=== PATIENT | female | born 1940 | race Caucasian/White ===

== ENCOUNTER 2017-07-18 03:26 | Inpatient (IN) | payer MEDICARE, MEDICAID ==
[2017-07-18 04:01] LABS: Hematocrit 38.3 % (37.0-47.0); Hemoglobin 12.8 gm/dL (12.5-16.0); Mean Corpuscular Hemoglobin 32.4 pg (27-31); Mean Corpuscular Hgb Conc 33.4 g/dl (32-36); Mean Platelet Volume 10.1 fl (6.0-9.5); Neutrophil % 59.5 % (42-75.0); Platelet Count 169 K/mm3 (150-450); Red Blood Count 3.95 M/mm3 (4.2-5.4); Red Cell Distribution Width 12.9 % (11.5-14.0); White Blood Count 6.7 K/mm3 (4.0-10.5)
[2017-07-18] MEDS ORDERED: DILTIAZEM HCL 5 MG/ML VIAL IV ONE ×3 (04:08→04:40)
--- NOTE | 2017-07-18 04:11 | ERNOTE ---
Medical Problem HPI - Narrative Date of Service: 07/18/17 - General Chief Complaint: Nausea/Vomiting Time Seen by Provider: 07/18/17 03:34 Source: patient Exam Limitations: no limitations - Immun/Allergies/Home Medications Immunizations: IMMUNIZATION HX Immunizations Up to Date Yes History of Influenza Vaccine Yes Hx Pneumococcal Vaccination No Allergies/Adverse Reactions: Allergies No Known Allergies Allergy (Verified 06/21/16 20:49) Home Medications: HOME MEDICATIONS Aspirin [Aspirin EC] 81 mg PO DAILY 08/09/15 [Last Taken Unknown] Atenolol [Tenormin] 50 mg PO BID 08/09/15 [Last Taken Unknown] Atorvastatin Calcium 40 mg PO HS 08/09/15 [Last Taken Unknown] Benazepril HCl 20 mg PO DAILY 08/09/15 [Last Taken Unknown] Calcium Carbonate [Tums] 1,500 mg PO HS 08/09/15 [Last Taken Unknown] HYDROcodone/ACETAMINOPHEN [Lortab 5-325 mg Tablet] 1 each PO Q6H PRN 08/09/15 [ Last Taken Unknown] Naproxen [Naprosyn] 500 mg PO DAILY 08/09/15 [Last Taken Unknown] glipiZIDE [Glipizide] 10 mg PO BID 08/09/15 [Last Taken Unknown] metFORMIN HCL [Glucophage] 500 mg PO BID 08/09/15 [Last Taken Unknown] Furosemide [Lasix] 40 mg PO DAILY #5 tablet 06/21/16 [Last Taken Unknown] Potassium Chloride [Klor-Con M20] 20 meq PO DAILY #5 tab.er.prt 06/21/16 [Last Taken Unknown] Cholecalciferol [Vitamin D] 2,000 unit PO TID 07/18/17 [Last Taken Unknown] Cyanocobalamin (Vitamin B-12) [Vitamin B12] 2,500 mcg PO HS 07/18/17 [Last Taken Unknown] Omeprazole 20 mg PO DAILY 07/18/17 [Last Taken Unknown] - History of Present History Narrative: 77 year old that came to the ED due to not feeling well and diarrhea. By the time she got to the ED the diarrhea had resolved. Denies any chest pain, shortness of breath, fevers, chills, N/V. Over the weekend she took additional diuretics as per the recommendation of her physician due to lower extremity edema. Date (Duration): 07/18/17 Time (Timing): 05:00 Timing: constant Severity: mild Modifying Factors - (Improves): Present: other - nothing Modifying Factors - (Worsens): Present: other - nothing Review of Systems - Review of Systems Constitutional: Present: no symptoms reported EYE: Present: no symptoms reported ENT: Present: no symptoms reported Respiratory: Present: no symptoms reported Cardiology: Present: no symptoms reported Gastrointestinal/Abdominal: Present: no symptoms reported Genitourinary: Present: no symptoms reported Musculoskeletal: Present: no symptoms reported Skin: Present: no symptoms reported Neurological: Present: no symptoms reported Endocrine: Present: no symptoms reported Hematologic/Lymphatic: Present: no symptoms reported Psych: Present: no symptoms reported - Patient's Past Medical History Patient History - Medical: Diabetes Type 2, Obesity Patient History - Cardiac/Respiratory: Hypertension Patient History - Cancer: Colon, Lung Patient History - Surgical Procedures: Appendectomy, Cataracts, Cholecystectomy , Hysterectomy, Total Knee Replacement - Social History Abuse History: No History of abuse Psych History: No pertinent hx Smoking Status: Former smoker - Immunizations Immunizations Up to Date: Yes Hx Pneumococcal Vaccination: No History of Influenza Vaccine: Yes Physical Exam - Physical Exam Narrative: Pleasant and cooperative. General Appearance: Present: no apparent distress Head Exam: Present: normal inspection Eye Exam: Normal inspection: bilateral Ears, Nose, Throat: Present: normal ENT inspection Neck: Present: normal inspection Respiratory: Present: no respiratory distress Cardiovascular/Chest: Present: tachycardia Gastrointestinal/Abdominal: Present: nondistended Back Exam: Present: normal inspection Extremity Exam: Present: pedal edema, extremity edema Neurological Exam: Present: alert, oriented, normal mood/affect Skin Exam: Present: normal color, warm/dry ED Progress - Results and Orders Patient's Lab Results:: I have reviewed the patient's lab results. - Vital Signs Patient's Vital Signs:: I have reviewed the patient's vital signs. Vital Signs: Vital Signs 07/18/17 03:42 Temperature 36.7 C Pulse Rate 158 H Respiratory 20 Rate Blood Pressure 148/78 - EKG EKG: atrial fibrillation EKG read: Interp. by me EKG Comments: with RVR, rate 152 - X-Ray X-Ray #1 X-Ray: chest Interpretation: Interp. by me X-ray Comments: mild CHF - Progress/Reassessment Chief Complaint: Nausea/Vomiting Progress:: Improved Progress Note-Subjective: 07/18/17 05:07 The heart rate was decreasing with the use of Cardiazem. A drip was started in the ED. The case was discussed with Clayton who will admit the patient. 07/18/17 05:17 hemodynamically stable. Departure Clinical Impression: New onset atrial fibrillation, Congestive heart failure - Departure Disposition: [facility] Condition: Critical Referrals: Jamie Nielson MD [Primary Care Provider] -
[2017-07-18 04:20] LABS: ALT 30 U/L (19-67); AST 18 U/L (0-48); Albumin * 3.6 gm/dl (3.4-5.0); Alkaline Phosphatase * 84 U/L (50-170); Anion Gap 10.5 mmol/L (6.8-13.8); BUN/Creatinine Ratio 11.9 (9.0-21.6); Bilirubin, Total 1.1 mg/dL (0.0-1.1); Blood Urea Nitrogen 15 mg/dL (3-23); Ca. Corrected For Albumin 8.7 mg/dL (8.4-10.2); Calcium * 8.7 mg/dL (7.9-10.9); Carbon Dioxide 31.8 mmol/L (24-32.6); Chloride 105 mmol/L (97-106); Glucose * 190 mg/dL (70-110); Potassium 3.3 mmol/L (3.4-4.6); Sodium 144 mmol/L (132-142); Total Protein 7.1 gm/dL (6.2-8.2); Troponin I Less than 0.017 ng/ml (0.00-0.10)
[2017-07-18 04:47] LABS: BNP * 2513 pg/mL (5-550)
[2017-07-18] MEDS ORDERED: POTASSIUM CHLORIDE 20 MEQ TABLET.SA PO ONE (04:54)
[2017-07-18] MEDS ORDERED: ENOXAPARIN SODIUM 100 MG/ML SYRG SC ONE ×2 (04:59→05:13)
[2017-07-18] MEDS ORDERED: FUROSEMIDE 10 MG/ML VIAL ONE (05:13)
[2017-07-18] MEDS ORDERED: POTASSIUM CHLORIDE 20 MEQ TABLET.SA ONE (05:13)
[2017-07-18] MEDS: FUROSEMIDE 10 MG/ML VIAL IV SCH ×5 (05:16→20:40)
[2017-07-18] MEDS: DILTIAZEM HCL 125 MG in DEXTROSE 5 % IN WATER 100 ML IV PRN ×4 (05:36→14:02)
[2017-07-18] MEDS ORDERED: HYDROcodone/ACETAMINOPHEN 1 EACH TABLET PO PRN (09:37)
--- NOTE | 2017-07-18 10:33 | HP ---
Chief Complaint - Chief Complaint Date of Service: 07/18/17 Time of Service: 10:33 Chief Complaint: Diarrhea History of Present Illness: This is a 77 year old woman who came to our ER early this morning because she hadn't felt well over the weekend. She had diarrhea, which had resolved by the time she reached our ER. She also had an irregular pulse and more fluid in her feet, for which her regular doctor instructed her to take extra fluid medicine. Over the last month she may also have had an irregular pulse, but she is not sure. In the ER she was found to have atrial fibrillation with RVR. She has never had this diagnosis before. She is comfortable, but still has a fib with RVR. She has been started on diltiazem IV and has been given one dose of Lovenox. - Patient's Past Medical History Patient History - Medical: Diabetes Type 2, Obesity Patient History - Cardiac/Respiratory: Hypertension Patient History - Cancer: Colon, Lung Patient History - Surgical Procedures: Appendectomy, Cataracts, Cholecystectomy , Hysterectomy, Total Knee Replacement Patient History - Other: None - Family History Mother Family History - Medical: Diabetes Type 2 Insulin Dependent Family History - Cancer: History Unknown Father Family History - Medical: Family History - Cardiac/Respiratory: History Unknown Family History - Cancer: No pertinent family hx Brother Family History - Cardiac/Respiratory: History Unknown Family History - Cancer: No pertinent family hx Sister Family History - Medical: Other - Social History Living Situations: home Abuse History: No History of abuse Psych History: No pertinent hx Smoking Status: Never smoker Have you smoked in the past 12 months: No Do you dip or chew tobacco: No Patient requests Smoking Cessation Consult: No Initiate information on Smoking Cessation: No Alcohol Use: none Drug Use: none - Immunizations Immunizations Up to Date: Yes Hx Pneumococcal Vaccination: No History of Influenza Vaccine: Yes Review Of Systems (GEN) - Review of Systems Generalized/Overall Review: Present: No Symptoms Reported EENTM: Present: No Symptoms Reported Respiratory: Present: No Symptoms Reported Cardiac: Present: Palpitations Abdominal: Present: Diarrhea Genitourinary: Present: No Symptoms Reported Musculoskeletal: Present: No Symptoms Reported Neurological: Present: No Symptoms Reported Skin: Present: No Symptoms Reported Endocrine: Present: No Symptoms Reported Misc: All systems neg except as marked Allergies/Adverse Reactions: Allergies Allergy/AdvReac Type Severity Reaction Status Date / Time No Known Allergies Allergy Verified 07/18/17 07:27 Home Medications: HOME MEDICATIONS Aspirin [Aspirin EC] 81 mg PO DAILY 08/09/15 [Last Taken Unknown] Atenolol [Tenormin] 50 mg PO BID 08/09/15 [Last Taken Unknown] Atorvastatin Calcium 40 mg PO HS 08/09/15 [Last Taken Unknown] Benazepril HCl 20 mg PO DAILY 08/09/15 [Last Taken Unknown] Calcium Carbonate [Tums] 1,500 mg PO HS 08/09/15 [Last Taken Unknown] HYDROcodone/ACETAMINOPHEN [Lortab 5-325 mg Tablet] 1 each PO Q6H PRN 08/09/15 [ Last Taken Unknown] Naproxen [Naprosyn] 500 mg PO DAILY 08/09/15 [Last Taken Unknown] glipiZIDE [Glipizide] 10 mg PO BID 08/09/15 [Last Taken Unknown] metFORMIN HCL [Glucophage] 500 mg PO BID 08/09/15 [Last Taken Unknown] Furosemide [Lasix] 40 mg PO DAILY #5 tablet 06/21/16 [Last Taken Unknown] Potassium Chloride [Klor-Con M20] 20 meq PO DAILY #5 tab.er.prt 06/21/16 [Last Taken Unknown] Cholecalciferol [Vitamin D] 2,000 unit PO TID 07/18/17 [Last Taken Unknown] Cyanocobalamin (Vitamin B-12) [Vitamin B12] 2,500 mcg PO HS 07/18/17 [Last Taken Unknown] Omeprazole 20 mg PO DAILY 07/18/17 [Last Taken Unknown] Exam - Exam Vital Signs: Vital Signs - Last Taken Selected Entries 07/18/17 07/18/17 08:28 09:33 Temperature 36.4 C L Temperature Temporal Artery Source Scan Pulse Rate 126 H 128 H Pulse Rhythm Irregular Respiratory 22 H Rate Respiratory Normal Depth Respiratory Non-Labored Effort Respiratory Normal Pattern Blood Pressure 116/80 Blood Pressure Sitting Position O2 Sat by Pulse 98 Oximetry Oxygen Delivery Room Air Method Constitutional: Present: Alert, Oriented x3, Cooperative ENT Exam: Present: normal ENT inspection, hearing grossly normal Eye Exam: bilateral eye: normal inspection, PERRL, EOMI Neck: Present: normal inspection Back Exam: Present: normal inspection, no CVA tenderness, no vertebral tenderness Respiratory: Present: lungs clear, normal breath sounds Cardiovascular/Chest: Present: tachycardia, irregularly irregular Abdomen: Present: Normal bowel sounds, soft, nontender, nondistended, no rebound tenderness, no hepatospenomegaly, no masses, obese Extremity: Present: pedal edema Skin Exam: Present: normal color, warm/dry, no cyanosis Neurologic: Present: alert, oriented x 3 Appearance: Present: appropriate appearance, appropriate insight, neat, no memory impairment Eye contact: Present: cooperative, good eye contact, normal speech Thoughts: Present: normal thought pattern Diagnostic Studies: Laboratory Results WBC 6.7 K/mm3 (4.0-10.5) 07/18/17 03:55 RBC 3.95 M/mm3 (4.2-5.4) L 07/18/17 03:55 Hgb 12.8 gm/dL (12.5-16.0) 07/18/17 03:55 Hct 38.3 % (37.0-47.0) 07/18/17 03:55 MCV 97.0 fl (78-100) 07/18/17 03:55 MCH 32.4 pg (27-31) H 07/18/17 03:55 MCHC 33.4 g/dl (32-36) 07/18/17 03:55 RDW 12.9 % (11.5-14.0) 07/18/17 03:55 Plt Count 169 K/mm3 (150-450) 07/18/17 03:55 MPV 10.1 fl (6.0-9.5) H 07/18/17 03:55 Immature Gran % (Auto) 0.30 % (0.001-0.429) 07/18/17 03:55 Immature Gran # (Auto) 0.02 K/mm3 (0.000-0.0310) 07/18/17 03:55 Neutrophils % 59.5 % (42-75.0) 07/18/17 03:55 Lymphocytes % 27.2 % (20-51) 07/18/17 03:55 Monocytes % 8.2 % (0.0-9) 07/18/17 03:55 Eosinophils % 4.2 % (0.0-3.0) H 07/18/17 03:55 Basophils % 0.6 % (0.0-1.0) 07/18/17 03:55 Nucleated RBC % 0.0 k/mm3 (0-1) 07/18/17 03:55 Neutrophils # 4.0 K/mm3 (1.3-6.0) 07/18/17 03:55 Lymphocytes # 1.8 k/mm3 (1.5-3.5) 07/18/17 03:55 Monocytes # 0.6 k/mm3 (0.0-1.0) 07/18/17 03:55 Eosinophils # 0.3 k/mm3 (0.0-0.7) 07/18/17 03:55 Absolute Basophils 0.0 k/mm3 (0.0-0.1) 07/18/17 03:55 Sodium 144 mmol/L (132-142) H 07/18/17 03:55 Plasma Sodium 145 mmol/L (130-142) H 07/18/17 03:55 Potassium 3.3 mmol/L (3.4-4.6) L 07/18/17 03:55 Chloride 105 mmol/L (97-106) 07/18/17 03:55 Carbon Dioxide 31.8 mmol/L (24-32.6) 07/18/17 03:55 Anion Gap 10.5 mmol/L (6.8-13.8) 07/18/17 03:55 BUN 15 mg/dL (3-23) 07/18/17 03:55 Creatinine 1.26 mg/dL (0.4-1.4) 07/18/17 03:55 Est GFR (Non-Af Amer) 44 mL/min (60-130) L D 07/18/17 03:55 BUN/Creatinine Ratio 11.9 (9.0-21.6) 07/18/17 03:55 Random Glucose 190 mg/dL (70-110) H 07/18/17 03:55 Calcium 8.7 mg/dL (7.9-10.9) 07/18/17 03:55 Calcium Adj for Albumin 8.7 mg/dL (8.4-10.2) 07/18/17 03:55 Total Bilirubin 1.1 mg/dL (0.0-1.1) 07/18/17 03:55 AST 18 U/L (0-48) 07/18/17 03:55 ALT 30 U/L (19-67) 07/18/17 03:55 Alkaline Phosphatase 84 U/L (50-170) 07/18/17 03:55 Troponin I Less than 0.017 ng/ml (0.00-0.10) 07/18/17 03:55 B-Natriuretic Peptide 2513 pg/mL (5-550) H 07/18/17 03:55 Total Protein 7.1 gm/dL (6.2-8.2) 07/18/17 03:55 Albumin 3.6 gm/dl (3.4-5.0) 07/18/17 03:55 Assessment/Plan - Narrative Narrative: Rate control, amiodarone, anticoagulate, follow labs, echo. - Assessment/Plan (1) Congestive heart failure Problem: Acute (2) New onset atrial fibrillation Problem: Acute (3) Diabetes mellitus Problem: Acute (4) Hypertension Problem: Acute
[2017-07-18 12:28] LABS: Prothrombin Time (Patient) 11.3 Seconds (9.0-11.0)
[2017-07-18] MEDS: CHOLECALCIFEROL 1,000 UNIT CAPSULE PO SCH ×2 (12:30→17:01)
[2017-07-18] MEDS: AMIODARONE HCL 200 MG TABLET PO SCH ×2 (12:30→20:45)
[2017-07-18 12:36] LABS: INR 1.13 INR (0.90-1.10)
[2017-07-18] MEDS ORDERED: ATENOLOL 50 MG TABLET PO ONE (14:00)
[2017-07-18] MEDS ORDERED: WARFARIN SODIUM 5 MG TABLET PO SCH (17:00)
[2017-07-18] MEDS: glipiZIDE 10 MG TABLET PO SCH (17:01)
[2017-07-18] MEDS: ENOXAPARIN SODIUM 100 MG/ML SYRG SC SCH (17:02)
[2017-07-18] MEDS: ATENOLOL 50 MG TABLET PO SCH (20:46)
[2017-07-18] MEDS ORDERED: ATORVASTATIN CALCIUM 40 MG TABLET PO SCH (21:00)
[2017-07-18] MEDS ORDERED: CALCIUM CARBONATE 500 MG TAB.CHEW PO SCH (21:00)
[2017-07-18] MEDS ORDERED: CYANOCOBALAMIN 1,000 MCG TABLET PO SCH (21:00)
[2017-07-19] MEDS: ENOXAPARIN SODIUM 100 MG/ML SYRG SC SCH (05:12)
[2017-07-19 06:01] LABS: Hematocrit 36.3 % (37.0-47.0); Hemoglobin 11.7 gm/dL (12.5-16.0); Mean Cell Volume 98.9 fl (78-100); Mean Corpuscular Hemoglobin 31.9 pg (27-31); Mean Corpuscular Hgb Conc 32.2 g/dl (32-36); Mean Platelet Volume 10.4 fl (6.0-9.5); Neutrophil # 2.9 K/mm3 (1.3-6.0); Neutrophil % 37.9 % (42-75.0); Platelet Count 175 K/mm3 (150-450); Red Blood Count 3.67 M/mm3 (4.2-5.4); Red Cell Distribution Width 13.2 % (11.5-14.0); White Blood Count 7.8 K/mm3 (4.0-10.5)
[2017-07-19 06:07] LABS: Prothrombin Time (Patient) 11.7 Seconds (9.0-11.0)
[2017-07-19 06:08] LABS: BUN/Creatinine Ratio 9.6 (9.0-21.6); Calcium * 8.6 mg/dL (7.9-10.9); Carbon Dioxide 32.3 mmol/L (24-32.6); Estimated Creat Clear 26.3; Potassium 3.3 mmol/L (3.4-4.6)
[2017-07-19 06:43] LABS: INR 1.17 INR (0.90-1.10)
[2017-07-19] MEDS: glipiZIDE 10 MG TABLET PO SCH ×2 (06:50→17:24)
[2017-07-19] MEDS: AMIODARONE HCL 200 MG TABLET PO SCH ×3 (06:50→20:22)
[2017-07-19] MEDS ORDERED: PANTOPRAZOLE SODIUM 20 MG TABLET.DR PO SCH (07:00)
[2017-07-19] MEDS: CHOLECALCIFEROL 1,000 UNIT CAPSULE PO SCH ×3 (08:00→17:23)
[2017-07-19] MEDS: FUROSEMIDE 10 MG/ML VIAL IV SCH (08:01)
[2017-07-19] MEDS: ATENOLOL 50 MG TABLET PO SCH (08:01)
[2017-07-19] MEDS ORDERED: ATENOLOL 50 MG TABLET PO SCH (09:00)
[2017-07-19] MEDS ORDERED: ASPIRIN 81 MG TABLET.DR PO SCH (09:00)
[2017-07-19] MEDS ORDERED: ENALAPRIL MALEATE 20 MG TABLET PO SCH (09:00)
[2017-07-19] MEDS ORDERED: POTASSIUM CHLORIDE 20 MEQ TABLET.SA PO SCH ×2 (09:00)
[2017-07-19] MEDS ORDERED: FUROSEMIDE 80 MG TABLET PO SCH (09:30)
--- NOTE | 2017-07-19 09:48 | PN ---
Subjective - Date and Time Seen Date: 07/19/17 Time: 09:37 Subjective Narrative: Feels better. Rate better. Daytime sleepiness. Multiple family members with KAI. Echo shows only mild pulmonary hypertension. Suppose could have had mild recurrent multiple pulmonary emboli. pulmonary hypertension very mild. Objective - Review of Systems Generalized/Overall Review: Reports: No Symptoms Reported EENTM: Reports: No Symptoms Reported Respiratory: Reports: No Symptoms Reported Cardiac: Reports: No Symptoms Reported Abdominal: Reports: No Symptoms Reported Genitourinary Symptoms: Reports: No Symptoms Reported Musculoskeletal Complaints: Reports: No Symptoms Reported Neurological: Reports: No Symptoms Reported Skin: Reports: No Symptoms Reported Endocrine: Reports: No Symptoms Reported Misc: All systems neg except as marked - Vitals Vitals: Last Vital Signs Selected Entries 07/19/17 07/19/17 07:00 08:01 Temperature 36.3 C L Temperature Temporal Artery Source Scan Pulse Rate 100 104 H Respiratory 16 Rate Respiratory Normal Depth Respiratory Normal Effort Non-Labored Respiratory Normal Pattern Blood Pressure 119/70 119/70 Blood Pressure 86 Mean Blood Pressure Sitting Position O2 Sat by Pulse 100 Oximetry Oxygen Delivery Room Air Method - Abnormal Lab Findings Abnormal Lab Findings: Abnormal Lab Results 07/19/17 07/19/17 07/19/17 Range/Units 05:15 05:15 05:15 RBC 3.67 L (4.2-5.4) M/mm3 Hgb 11.7 L (12.5-16.0) gm/dL Hct 36.3 L (37.0-47.0) % MCH 31.9 H (27-31) pg MPV 10.4 H (6.0-9.5) fl Neutrophils % 37.9 L (42-75.0) % Monocytes % 10.3 H (0.0-9) % Eosinophils % 6.2 H (0.0-3.0) % PT 11.7 H (9.0-11.0) Seconds INR (Anticoag Therapy) 1.17 H (0.90-1.10) INR Sodium 145 H (132-142) mmol/L Plasma Sodium 146 H (130-142) mmol/L Potassium 3.3 L (3.4-4.6) mmol/L Est GFR (Non-Af Amer) 40 L (60-130) mL/min Random Glucose 133 H (70-110) mg/dL - Exam Constitutional: Present: Alert, Oriented x3, Cooperative, Well developed, No distress, Morbidly obese ENT Exam: Present: normal ENT inspection, hearing grossly normal Neck: Present: normal inspection Respiratory: Present: normal breath sounds, no respiratory distress Cardiovascular/Chest: Present: no chest tenderness, irregularly irregular Abdomen: Present: Normal bowel sounds, soft, nontender, nondistended, no rebound tenderness, no hepatospenomegaly, no masses, obese Extremity: Present: pedal edema Skin Exam: Present: normal color, warm/dry, no cyanosis Lymphatic: Present: no adenopathy Neurologic: Present: alert, oriented x 3 Appearance: Present: appropriate appearance, appropriate insight, neat Eye contact: Present: cooperative, good eye contact, normal speech Thoughts: Present: normal thought pattern Assessment/Plan Plan Narrative: Med surg. Sleep study. Outpatient cardiology. Add potassium. Decrease roni. Follow labs. - Problems/Diagnosis (1) Congestive heart failure Problem: Acute (2) New onset atrial fibrillation Problem: Acute (3) Diabetes mellitus Problem: Acute (4) Hypertension Problem: Acute (5) Pulmonary hypertension Problem: Acute (6) Hypokalemia Problem: Acute (7) Excessive daytime sleepiness Problem: Acute
[2017-07-19] MEDS ORDERED: HYDROcodone/ACETAMINOPHEN 1 EACH TABLET PO PRN (10:00)
[2017-07-19] MEDS: FUROSEMIDE 80 MG TABLET PO SCH (12:17)
[2017-07-19] MEDS ORDERED: WARFARIN SODIUM 5 MG TABLET PO SCH (17:00)
[2017-07-19] MEDS ORDERED: ENOXAPARIN SODIUM 100 MG/ML SYRG SC SCH (18:00)
[2017-07-19] MEDS: POTASSIUM CHLORIDE 20 MEQ TABLET.SA PO SCH (20:22)
[2017-07-19] MEDS: ATENOLOL 100 MG TABLET PO SCH (20:23)
[2017-07-19] MEDS ORDERED: ATORVASTATIN CALCIUM 40 MG TABLET PO SCH (21:00)
[2017-07-19] MEDS ORDERED: CALCIUM CARBONATE 500 MG TAB.CHEW PO SCH (21:00)
[2017-07-19] MEDS ORDERED: CYANOCOBALAMIN 1,000 MCG TABLET PO SCH (21:00)
[2017-07-20] MEDS ORDERED: ENOXAPARIN SODIUM 100 MG/ML SYRG SC SCH (06:00)
[2017-07-20 06:51] LABS: Prothrombin Time (Patient) 11.8 Seconds (9.0-11.0)
[2017-07-20 06:52] LABS: INR 1.18 INR (0.90-1.10)
[2017-07-20 06:53] LABS: Anion Gap 12.7 mmol/L (6.8-13.8); BUN/Creatinine Ratio 15.1 (9.0-21.6); Calcium * 8.6 mg/dL (7.9-10.9); Carbon Dioxide 27.4 mmol/L (24-32.6); Estimated Creat Clear 22.5; Potassium 4.1 mmol/L (3.4-4.6)
[2017-07-20] MEDS: AMIODARONE HCL 200 MG TABLET PO SCH ×2 (06:56→13:59)
[2017-07-20] MEDS: glipiZIDE 10 MG TABLET PO SCH (06:56)
[2017-07-20 06:58] LABS: Hematocrit 39.8 % (37.0-47.0); Hemoglobin 12.6 gm/dL (12.5-16.0); Mean Cell Volume 100.5 fl (78-100); Mean Corpuscular Hemoglobin 31.8 pg (27-31); Mean Corpuscular Hgb Conc 31.7 g/dl (32-36); Mean Platelet Volume 10.5 fl (6.0-9.5); Neutrophil # 3.6 K/mm3 (1.3-6.0); Platelet Count 183 K/mm3 (150-450); Red Blood Count 3.96 M/mm3 (4.2-5.4); Red Cell Distribution Width 13.2 % (11.5-14.0)
[2017-07-20] MEDS ORDERED: PANTOPRAZOLE SODIUM 20 MG TABLET.DR PO SCH (07:00)
[2017-07-20] MEDS ORDERED: ENALAPRIL MALEATE 5 MG TABLET PO SCH ×2 (09:00)
[2017-07-20] MEDS: POTASSIUM CHLORIDE 20 MEQ TABLET.SA PO SCH (09:34)
[2017-07-20] MEDS: ATENOLOL 100 MG TABLET PO SCH (09:34)
[2017-07-20] MEDS: CHOLECALCIFEROL 1,000 UNIT CAPSULE PO SCH ×2 (09:34→13:59)
[2017-07-20] MEDS: FUROSEMIDE 80 MG TABLET PO SCH (10:48)
[2017-07-20 10:53] VITALS: BP 109/67
--- NOTE | 2017-07-20 11:15 | DS ---
(1) Congestive heart failure Problem: Ruled-out (2) New onset atrial fibrillation Problem: Acute (3) Diabetes mellitus Problem: Chronic Qualifiers: Diabetes mellitus type: type 2 (4) Hypertension Problem: Acute (5) Pulmonary hypertension Problem: Acute (6) Hypokalemia Problem: Acute (7) Excessive daytime sleepiness Problem: Acute (8) Venous insufficiency (chronic) (peripheral) Problem: Chronic (9) Morbid obesity Problem: Chronic (10) Atrial fibrillation with rapid ventricular response Problem: Acute Description of Stay: Rate controlled with a higher dose of atenolol after initial treatment with IV diltiazem. Amiodarone started, but has not yet converted to sinus rhythm. Will probably need cardiology consult in the future. Because of the pulmonary hyptersension, morbid obesity, daytime drowsiness and KAI in the family, a sleep study will be ordered. Because of the a fib, anticoagulation has been started. Procedures Performed: none Discharge Disposition: Home self care Disposition: Home self-care Condition: Critical Discharge Activity: Activity as tolerated Discharge Diet: Consistent carbs, Low salt Referrals: Jamie Nielson MD [Primary Care Provider] - Problem Oriented Discharge Instructions to Patient/Family: Atrial Fibrillation , [id number] Additional Patient Instructions (free text): Resume homemaking services with [facility] at discharge. Please call Charmaine Servin at [phone] when patient discharged. Please make TCM appointment at discharge, if applicable. Thank you! Rafaela @ et: [phone]. Please Arrange Outpatient sleep study. Today: Fax a copy of this entire record to her doctor. Give a copy of this entire record to the patient so she can also hand carry it to her doctor. CBC BMP and Protime in 2 days. Prescriptions (Any new or edited meds): Amiodarone HCl [Cordarone] 400 mg PO BID #60 tablet Atenolol [Tenormin] 100 mg PO BID #60 tablet Enalapril Maleate [Vasotec] 10 mg PO DAILY #30 tablet Enoxaparin Sodium [Lovenox] 100 mg SC Q24H #10 disp.syrin Furosemide [Lasix] 80 mg PO DAILY@1100 #30 tablet Potassium Chloride [K-Dur] 20 meq PO BID #60 tablet.sa Warfarin Sodium [Coumadin] 7.5 mg PO DAILY@1700 #30 tablet Complete Home Medications List: Complete Home Medication List: Atorvastatin Calcium 40 mg PO HS 08/09/15 Calcium Carbonate [Tums] 1,500 mg PO HS 08/09/15 HYDROcodone/ACETAMINOPHEN [Lortab 5-325 mg Tablet] 1 each PO Q6H PRN 08/09/15 glipiZIDE [Glipizide] 10 mg PO BID 08/09/15 Cholecalciferol [Vitamin D] 2,000 unit PO TID 07/18/17 Cyanocobalamin (Vitamin B-12) [Vitamin B12] 2,500 mcg PO HS 07/18/17 Omeprazole 20 mg PO DAILY 07/18/17 Amiodarone HCl [Cordarone] 400 mg PO BID #60 tablet 07/20/17 Atenolol [Tenormin] 100 mg PO BID #60 tablet 07/20/17 Enalapril Maleate [Vasotec] 10 mg PO DAILY #30 tablet 07/20/17 Enoxaparin Sodium [Lovenox] 100 mg SC Q24H #10 disp.syrin 07/20/17 Furosemide [Lasix] 80 mg PO DAILY@1100 #30 tablet 07/20/17 Potassium Chloride [K-Dur] 20 meq PO BID #60 tablet.sa 07/20/17 Warfarin Sodium [Coumadin] 7.5 mg PO DAILY@1700 #30 tablet 07/20/17
[2017-07-20] MEDS ORDERED: WARFARIN SODIUM 7.5 MG TABLET PO SCH (17:00)
--- NOTE | 2017-07-21 08:02 | ECHO ---
This report is available in the EMR
== END 2017-07-20 14:15 | disposition home health service (06) | DRG 310 ==
LOC: ER 03:26 → SCU 06:16 → MS 07-19 09:23
PROVIDERS: ADMIT Nurse Practitioner; ATTEND Allergy & Immunology
PROC: B246ZZZ Ultrasonography of Right and Left Heart (ICD-10-PCS; principal; 2017-07-18)
DX: I48.91 Unspecified atrial fibrillation (principal); E87.6 Hypokalemia; I27.20 Pulmonary hypertension, unspecified; I10 Essential (primary) hypertension; G47.8 Other sleep disorders; E11.9 Type 2 diabetes mellitus without complications; Z79.82 Long term (current) use of aspirin